=== PATIENT | female | born 1975 ===

== ENCOUNTER 2021-12-01 06:25 | Day surgery (SDC) | payer OTHER ==
[~2021-12-01] VITALS: Ht 157.5 cm; Wt 82.6 kg
[2021-12-01] MEDS ORDERED: PERCOCET 5-3251 EACH PO (08:22)
== END 2021-12-01 16:15 | disposition home or self-care (01) ==
LOC: CIR.AMB 06:25
PROVIDERS: ATTEND Surgery
DX: K64.8 Other hemorrhoids (principal); K62.89 Other specified diseases of anus and rectum; Z20.822 Contact with and (suspected) exposure to COVID-19; Z86.16 Personal history of COVID-19